=== PATIENT | male | born 1960 | race Hispanic/Latino ===

== ENCOUNTER 2019-06-01 02:50 | Emergency (ER) | payer MEDICAID ==
[2019-06-01] MEDS ORDERED: Doxycycline 100 MG Cap PO ONE (03:22)
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
== END 2019-06-01 03:50 | disposition home or self-care (01) ==
LOC: JD.ED 02:50
DX: T63.304A Toxic effect of unspecified spider venom, undetermined, initial encounter (principal); W57.XXXA Bitten or stung by nonvenomous insect and other nonvenomous arthropods, initial encounter
CPT/HCPCS: 99281; A9270; 99283